=== PATIENT | female | born 1955 | race American Indian/Alaskan Native ===

== ENCOUNTER 2016-11-15 23:31 | Emergency (ER) | payer OTHER ==
[2016-11-15 23:58] VITALS: RESP 20
[2016-11-16] MEDS ORDERED: Naproxen 550 mg Tab PO STA (00:09)
[2016-11-16] MEDS ORDERED: Naproxen 550 mg Tab PO ONE (00:15)
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
[2016-11-16 02:05] VITALS: BP 137/77; PULSE 72; TEMP 98.8
[2016-11-16 05:00] VITALS: O2SAT 98
--- NOTE | 2016-11-16 08:53 | RAD ---
PROCEDURE: Right Knee Radiographs. HISTORY: knee injury and pain COMPARISON: None. FINDINGS: BONES: Suspicious for small subcortical lucency at the medial femoral condyle. No fracture. JOINTS: Mild osteoarthritic changes. JOINT EFFUSION: None. OTHER FINDINGS: None. IMPRESSION: No evidence of acute fracture or dislocation. [id number] osteoarthritic changes. Questionable small subcortical lucency at the medial femoral condyle
--- NOTE | 2016-11-16 08:54 | RAD ---
PROCEDURE: Radiographs of the Right Forearm HISTORY: injury and pain COMPARISON: None available. TECHNIQUE: Frontal and lateral views obtained. FINDINGS: BONES: No fracture or destructive lesion. JOINT SPACES: Unremarkable. OTHER FINDINGS: None. IMPRESSION: No evidence of acute fracture or dislocation.
--- NOTE | 2016-11-16 09:32 | CT ---
PROCEDURE: CT HEAD WITHOUT CONTRAST. HISTORY: head injury, ?LOC COMPARISON: Comparison is made to the previous exam dated 07/21/2014 TECHNIQUE: Axial computed tomography images were obtained through the head/brain without intravenous contrast. Radiation dose: Total exam DLP = 875.29 mGy-cm. This CT exam was performed using one or more of the following dose reduction techniques: Automated exposure control, adjustment of the mA and/or kV according to patient size, and/or use of iterative reconstruction technique. FINDINGS: HEMORRHAGE: No intracranial hemorrhage. BRAIN: No mass effect or edema. No atrophy or chronic microvascular ischemic changes. VENTRICLES: Unremarkable. No hydrocephalus. CALVARIUM: Unremarkable. PARANASAL SINUSES: Unremarkable as visualized. No significant inflammatory changes. MASTOID AIR CELLS: Unremarkable as visualized. No inflammatory changes. OTHER FINDINGS: None. IMPRESSION: No evidence of acute intracranial hemorrhage intracranial collection mass effect or midline shift. No significant interval change since the previous study noted. Preliminary report was submitted by virtual Radiology.
== END 2016-11-16 02:04 | disposition home or self-care (01) ==
LOC: C.ER 23:31
DX: S83.91XA Sprain of unspecified site of right knee, initial encounter (principal); S50.11XA Contusion of right forearm, initial encounter; V43.52XA Car driver injured in collision with other type car in traffic accident, initial encounter; Y92.410 Unspecified street and highway as the place of occurrence of the external cause

== ENCOUNTER 2016-12-07 14:54 | Emergency (ER) | payer OTHER ==
[2016-12-07 15:44] LABS: BASO # 0.1 K/uL (0.0-0.2); BASO % 0.5 % (0.0-2.0); EOS # 0.2 K/uL (0.0-0.7); HEMATOCRIT 40.2 % (34.0-47.0); LYMPH # 2.5 K/uL (1.0-4.3); LYMPH % 23.4 % (20.0-40.0); MEAN CELL VOLUME 90.4 fL (81.0-99.0); MEAN CORPUSCULAR HEMOGLOBIN 29.7 pg (27.0-31.0); MEAN CORPUSCULAR HGB CONC 32.9 g/dL (33.0-37.0); MEAN PLATELET VOLUME 7.5 fL (7.2-11.7); MONO # 0.5 K/uL (0.0-0.8); MONO % 4.9 % (0.0-10.0); RED CELL DISTRIBUTION WIDTH 13.5 % (11.5-14.5); WHITE BLOOD COUNT 10.7 K/uL (4.8-10.8)
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
[2016-12-07 16:00] LABS: CHLORIDE 100 mmol/L (98-107); SODIUM 137 mmol/L (132-148)
[2016-12-07 16:02] LABS: BILIRUBIN,TOTAL 0.6 mg/dL (0.2-1.3); CARBON DIOXIDE 27 mmol/L (22-30); GFR AFRICAN-AMERICAN > 60
[2016-12-07 16:03] LABS: ALB/GLOB RATIO 1.4 (1.0-2.1); ALKALINE PHOSPHATASE 110 U/L (38-126); ALT/SGPT 18 U/L (9-52); AST/SGOT 25 U/L (14-36); BLOOD UREA NITROGEN 16 mg/dL (7-17); CALCIUM 8.6 mg/dl (8.6-10.4); GLUCOSE,RANDOM 126 mg/dL (65-105); TOTAL PROTEIN 7.5 g/dL (6.3-8.3)
[2016-12-07 16:07] LABS: POTASSIUM 4.5 mmol/L (3.6-5.2)
[2016-12-07 17:35] VITALS: BP 173/88; PULSE 70; RESP 18; TEMP 98.5; O2SAT 99
--- NOTE | 2016-12-13 17:00 | CARD ---
APPROVED REPORT EKG Measurement Heart [id number] <Conclusion> Normal sinus rhythm Normal ECG
== END 2016-12-07 17:34 | disposition home or self-care (01) ==
LOC: C.ER 14:54
DX: R42 Dizziness and giddiness (principal); S83.419D Sprain of medial collateral ligament of unspecified knee, subsequent encounter; V89.2XXD Person injured in unspecified motor-vehicle accident, traffic, subsequent encounter

== ENCOUNTER 2018-01-18 16:37 | Emergency (ER) | payer OTHER ==
[2018-01-18 16:49] VITALS: BMI 39.4
[2018-01-18 16:50] VITALS: BP 157/84; PULSE 78; TEMP 98.5; O2SAT 98
[2018-01-18 17:46] VITALS: RESP 18
--- NOTE | 2018-01-18 19:11 | C.PDOC ---
History Of Present Illness 62 year old female patient presents to the ER with c/o upper lip swelling that started yesterday. Patient reports that she ran out of her BP medication, so she decided to use her previous medication. Both medication gave her the same reaction. Patient denies difficulty in swallowing, breathing, and patient also states she did not take medication today. Chief Complaint (Nursing): Allergic Reaction History Per: Patient History/Exam Limitations: no limitations Onset/Duration Of Symptoms: Hrs Past Medical History Reviewed: Historical Data, Nursing Documentation, Vital Signs Vital Signs: Last Vital Signs Temp 98.5 F 01/18/18 16:49 Pulse 78 01/18/18 16:49 Resp 18 01/18/18 17:43 BP 157/84 H 01/18/18 16:49 Pulse Ox 98 01/18/18 19:21 - Medical History PMH: HTN Family History: States: Unknown Family Hx - Social History Hx Alcohol Use: Yes Hx Substance Use: No - Immunization History Hx Tetanus Toxoid Vaccination: Yes Hx Influenza Vaccination: Yes (2017) Hx Pneumococcal Vaccination: Yes Review Of Systems Except As Marked, All Systems Reviewed And Found Negative. Constitutional: Positive for: Other (upper lip swelling) ENT: Negative for: Other (Difficulty in swallowing ) Respiratory: Negative for: Other (difficulty in breathing) Physical Exam - Physical Exam Appears: Well, Non-toxic, No Acute Distress Skin: Normal Color, Warm, Dry Head: Atraumatic, Normacephalic Eye(s): bilateral: Normal Inspection, EOMI Nose: Normal Oral Mucosa: Moist Lips: Swelling (upper ) Throat: Other (pharynx clear; uvula midline) Chest: Symmetrical Cardiovascular: Rhythm Regular Respiratory: Normal Breath Sounds, No Stridor Gastrointestinal/Abdominal: Normal Exam, Soft, No Tenderness Extremity: Normal ROM (x4) Neurological/Psych: Oriented x3, Normal Speech Gait: Steady ED Course And Treatment O2 Sat by Pulse Oximetry: 98 (RA) Pulse Ox Interpretation: Normal Medical Decision Making Medical Decision Making: Impression: 62 year old female patient with upper lip swelling Plan: -- PredniSONE Progress: Patient was advised to to never take that medication and any medication of the same class. Disposition - Disposition Referrals: Moreno Leung MD [Staff Provider] - Disposition: HOME/ ROUTINE Disposition Time: 18:40 Condition: IMPROVED Additional Instructions: BELIA MACIEL, thank you for letting us take care of you today. Your provider was Adrián Chapin DO and you were treated for ALLERGIC REACTION. The emergency medical care you received today was directed at your acute symptoms. If you were prescribed any medication, please fill it and take as directed. It may take several days for your symptoms to resolve. Return to the Emergency Department if your symptoms worsen, do not improve, or if you have any other problems. Please contact your doctor or call one of the physicians/clinics you have been referred to that are listed on the Patient Visit Information form that is included in your discharge packet. Bring any paperwork you were given at discharge with you along with any medications you are taking to your follow up visit. Our treatment cannot replace ongoing medical care by a primary care provider outside of the emergency department. Thank you for allowing the [facility] team to be part of your care today. DO NOT TAKE THE LISINOPRIL UNDER ANY CIRCUMSTANCES. IT CAN CAUSE A SWELLING THAT CAUSE SEVERE BREATHING PROBLEMS. Follow up with your primary doctor in 2-3 days for re-evaluation and further management. Prescriptions: predniSONE [Prednisone] 40 mg PO DAILY #6 tab Instructions: Angioedema Forms: [employer] ([employer]), Work Excuse - Clinical Impression Clinical Impression: Angioedema - Scribe Statement The provider has reviewed the documentation as recorded by the Celia Mccollum Do Provider Attestation: All medical record entries made by the Celia were at my direction and personally dictated by me. I have reviewed the chart and agree that the record accurately reflects my personal performance of the history, physical exam, medical decision making, and the department course for this patient. I have also personally directed, reviewed, and agree with the discharge instructions and disposition.
== END 2018-01-18 17:45 | disposition home or self-care (01) ==
LOC: C.ER 16:37
DX: T78.3XXA Angioneurotic edema, initial encounter (principal); I10 Essential (primary) hypertension

== ENCOUNTER 2018-08-26 07:24 | Outpatient (CLI) | payer OTHER | END 2018-08-26 07:25 | disposition home or self-care (01) | LOC: C.VASC 07:24 ==